=== PATIENT | female | born 1995 | race Caucasian/White ===

== ENCOUNTER → 2018-05-26 | Outpatient (CLI) | payer OTHER ==
--- NOTE | 2018-05-26 12:49 | Diagnostic Imaging Report ---
INDICATION: Right ureteral stone. TIME OF EXAMINATION: 12:56 p.m. COMPARISON: No prior studies are available for comparison. FINDINGS: No definite radiopaque renal calculi are seen. No definite radiopaque calculi along the course of the ureters is seen. The bowel gas pattern is unremarkable. IMPRESSION: Unremarkable abdominal radiograph. No definite radiopaque urinary tract calculi are identified. Dictated by: Dictated on workstation # [id number]
== END ==
LOC: RAD 12:21
PROVIDERS: ATTEND Urology
DX: N20.1 Calculus of ureter (principal)
CPT/HCPCS: 74018

== ENCOUNTER → 2020-01-20 | Outpatient (CLI) | payer OTHER ==
[~2020-01-20] MED LIST: ACHD5005 PO; INSU100I10 SQ; INSU100I14 SQ; ONDN4T PO; TMSL.4C PO
--- NOTE | 2020-01-20 15:04 | Diagnostic Imaging Report ---
INDICATION: History of renal calculi. History of right flank pain. COMPARISON: 05/26/2018. FINDINGS: Two supine radiographic views of the abdomen were obtained. No unexpected extraosseous calcifications or radiopaque foreign bodies are seen. The small bowel loops are nondistended. There is no large collection of free intraperitoneal air. The included portions of the lung bases are clear. The osseous structures show no acute abnormalities. IMPRESSION: 1. No unexpected extraosseous calcifications. 2. Nonobstructed small bowel gas pattern. Dictated by: Dictated on workstation # [id number]
== END ==
LOC: RAD 13:35
PROVIDERS: ATTEND Urology
DX: N20.1 Calculus of ureter (principal); Z87.442 Personal history of urinary calculi
CPT/HCPCS: 74018

== ENCOUNTER 2020-01-21 14:32 | Outpatient (CLI) | payer OTHER ==
[~2020-01-21] VITALS: Ht 180.3 cm; Wt 143.2 kg
[2020-01-21] MEDS ORDERED: INSU100I14 SQ (14:45)
[2020-01-21] MEDS ORDERED: TMSL.4C PO (14:45)
[2020-01-21] MEDS ORDERED: ONDN4T PO (14:45)
[2020-01-21] MEDS ORDERED: INSU100I10 SQ (14:45)
[2020-01-21] MEDS ORDERED: ACHD5005 PO (14:45)
== END 2020-01-21 15:07 ==
LOC: PREOP 14:32
PROVIDERS: ATTEND Urology
DX: Z01.818 Encounter for other preprocedural examination (principal)

== ENCOUNTER 2020-01-27 08:36 | Day surgery (SDC) | payer OTHER ==
[2020-01-27] VITALS (11 sets, daily range): BP systolic 81–129; BP diastolic 56–97
[~2020-01-27] VITALS: Ht 180.3 cm; Wt 143.2 kg
--- NOTE | 2020-01-27 07:18 | Progress Note-Pre Operative ---
Pre-Operative Progress Note H&P Reviewed The H&P was reviewed, patient examined and no changes noted. Date Seen by Provider: Jan 27, 2020 Time Seen by Provider: 09:18 Date H&P Reviewed: Jan 27, 2020 Time H&P Reviewed: 09:18 Pre-Operative Diagnosis: RT URETERAL STONE JASIEL YANES MD Jan 27, 2020 07:18
[2020-01-27] MEDS ORDERED: LACTATED RINGERS 1,000 ML IV PRN (08:44)
[2020-01-27] MEDS ORDERED: cefTRIAXone FOR IV USE 1,000 MG in WATER (STERILE) FOR INJECTION 10 ML IV ONE (08:45)
--- NOTE | 2020-01-27 09:23 | Diagnostic Imaging Report ---
INDICATION: Right renal stone. Time of exam 8:55 AM Correlation is made with prior KUB from 01/20/2020. Mildly prominent small bowel loop in the left abdomen is noted, nonspecific. No definite radiopaque urinary tract calculi are detected. No free air is identified. IMPRESSION: No definite radiopaque urinary tract calculi are identified. Dictated by: Dictated on workstation # [id number]
[2020-01-27] MEDS ORDERED: fentaNYL INJECTION 100 MCG/2 ML AMP ONE (09:25)
[2020-01-27] MEDS ORDERED: MIDAZOLAM 2 MG/2 ML (VERSED) VIAL ONE (09:26)
[2020-01-27] MEDS ORDERED: inSUlin ASPART (NovoLOG) 1 UNIT/0.01 ML (CHARGE PER UNIT) ONE (09:26)
--- NOTE | 2020-01-27 09:28 | Progress Note-Post Operative ---
Post-Operative Progess Note Surgeon (s)/Fender Mechanic (s) Surgeon JASIEL YANES MD Fender Mechanic: NONE Pre-Operative Diagnosis RT URETERAL STONE Post-Operative Diagnosis SAME Procedure & Operative Findings Date of Procedure 01/27/20 Procedure Performed/Findings RT URETEROSCOPY, INSERTION OF RT URETERAL CATHETER, RETROGRADE UROGRAM AND RT ESWL Anesthesia Type GENERAL Estimated Blood Loss Estimated blood loss (mL): NONE Specimens/Packing Specimens Removed NONE Packing: NONE JASIEL YANES MD Jan 27, 2020 09:28
--- NOTE | 2020-01-27 09:29 | Discharge Inst-Urology ---
Discharge Inst-Urology Reconcile Patient Problems Problems Reviewed?: Yes Final Diagnosis RT URETERAL STONE Patient Instructions/Follow Up Plan/Assessment/Instructions Please make appointment to been seen in office in 2 weeks. Increase oral fluids for 48 hours and then as needed. Diet and Activity as tolerated. If questions or concerns contact your physician Or seek help at emergency department. JASIEL YANES MD Jan 27, 2020 09:29
[2020-01-27] MEDS ORDERED: inSUlin ASPART (NovoLOG) 1 UNIT/0.01 ML (CHARGE PER UNIT) IV ONE (09:30)
[2020-01-27] MEDS ORDERED: ONDANSETRON 4 MG/2 ML (SDV) Z0FRAN ONE (09:31)
[2020-01-27] MEDS ORDERED: proPOfol 200 MG/20 ML (DIPRIVAN) VIAL IV ONE (09:31)
[2020-01-27] MEDS ORDERED: ROCURONIUM 10 MG/ML 5 ML SYRINGE IV ONE (09:31)
[2020-01-27] MEDS ORDERED: SEVOFLURANE (ULTANE) 15 ML INHAL SOLN ONE (09:31)
[2020-01-27] MEDS ORDERED: LIDOCAINE PF 2% 5 ML (XYLOCAINE) VIAL ONE (09:31)
[2020-01-27] MEDS ORDERED: NEOSTIGMINE 3 MG/3 ML VIAL ONE (09:52)
[2020-01-27] MEDS ORDERED: GLYCOPYRROLATE 0.2 MG/ML (ROBINUL) 2 ML VIAL ONE (09:52)
[2020-01-27] MEDS ORDERED: IOPAMIDOL 61% 30 ML (ISOVUE 300) VIAL ONE (09:56)
--- NOTE | 2020-01-27 10:43 | Anesthesia-General Post-Op ---
General Patient Condition Mental Status/LOC: Same as Preop Cardiovascular: Satisfactory Nausea/Vomiting: Absent Respiratory: Satisfactory Pain: Controlled Complications: Absent Post Op Complications Complications None Follow Up Care/Instructions Patient Instructions None needed. Anesthesia/Patient Condition Patient Condition Patient is doing well, no complaints, stable vital signs, no apparent adverse anesthesia problems. No complications reported per nursing. GABE STEELE CRNA Jan 27, 2020 10:43
[2020-01-27] MEDS ORDERED: ONDANSETRON 4 MG/2 ML (SDV) Z0FRAN IVP PRN (10:45)
[2020-01-27] MEDS ORDERED: morphine INJ 10 MG/ML 1ML (SYR OR VIAL) IVP ONE (10:45)
[2020-01-27] MEDS ORDERED: NITR-65 PO (12:10)
[2020-01-27] MEDS ORDERED: TMSL.4C PO (12:10)
[2020-01-27] MEDS ORDERED: PHEN-640 PO (12:10)
[2020-01-27] MEDS ORDERED: TRAM50TA3 PO (12:10)
--- NOTE | 2020-01-27 12:52 | OPERATIVE REPORT ---
DATE OF SERVICE: 01/27/2020 PREOPERATIVE DIAGNOSIS: Right proximal ureteral stone. POSTOPERATIVE DIAGNOSIS: Right proximal ureteral stone. OPERATION PERFORMED: Right ureteroscopy, insertion of right ureteral catheter, retrograde urogram and right ESWL. SURGEON: Bean Yanes MD ANESTHESIA: General. COMPLICATIONS: None. DESCRIPTION OF PROCEDURE: Under satisfactory general anesthesia, the patient in lithotomy position on the cystoscopy table, genitalia were prepped and draped in the usual sterile fashion. Noted a vaginal prolapse. Cystoscope was introduced under vision. The bladder was essentially normal. There was a sluggish efflux on the right side. Using the foroblique lens, I dilated the right ureteral orifice intramural portion to accommodate a 6.9 Mong[place]ian semirigid ureteroscope; however, I could not go beyond the proximal ureter at the L2. I injected contrast and I could see the filling defect that originally was in the pelvis of the kidney at the UPJ pushed up into the upper calyx. I removed the ureteroscope, inserted the cystoscope again and passed a ureteral catheter all the way to the proximal ureter just below the UPJ and again confirmed the filling defect. We moved the patient to the ESWL table supine, and we localized the stone guided by injection of contrast, delivered shocks at kV of 6. After 2000 shocks delivered, we could not see any more filling defect after one or two injection of contrast. We went ahead and removed the ureteral catheter and the contrast was flowing very nicely and strongly. The patient received 40 mg of Lasix and 30 mg of Toradol IV at the end of the procedure. She tolerated the procedure and anesthesia well and was sent to recovery room in stable condition. Job ID: [id number] DocumentID: [id number] Dictated Date: 01/27/2020 10:34:03 Biological Technical Officer Date: 01/27/2020 12:51:48 Dictated By: BEAN YANES MD
== END 2020-01-27 12:55 | disposition home or self-care (01) ==
LOC: SDC 08:36
PROVIDERS: ATTEND Urology
DX: N20.1 Calculus of ureter (principal); E11.9 Type 2 diabetes mellitus without complications; K76.0 Fatty (change of) liver, not elsewhere classified; Z79.4 Long term (current) use of insulin; Z88.7 Allergy status to serum and vaccine; K21.9 Gastro-esophageal reflux disease without esophagitis; E66.01 Morbid (severe) obesity due to excess calories; Z68.41 Body mass index [BMI] 40.0-44.9, adult
CPT/HCPCS: 74018; 76000; 82962; 84703; 87081